=== PATIENT | female | born 1990 | race Caucasian/White ===

== ENCOUNTER 2024-01-12 22:53 | Inpatient (IN) | payer OTHER ==
[2024-01-12] MEDS: ELECTROLYTE-148 SOLN 1,000 ML IV SCH (23:30)
[2024-01-13 00:07] LABS: BASO % 0.2 % (0-2.0); EOS % 0.3 % (0-4.5); HEMOGLOBIN 12.8 GM/dL (10.7-15.3); LYMPH % 19.7 % (8-40); MCH 30.2 pg (25.7-33.7); MCHC 34.6 g/dl (32.0-36.0); MEAN CELL VOLUME 87.2 fl (80-96); MONO % 6.5 % (3.8-10.2); NEUT % 73.3 % (42.8-82.8); PLATELET COUNT 118 10^3/uL (134-434); RBC 4.24 M/mm3 (3.60-5.2); RDW 13.9 % (11.6-15.6)
[2024-01-13 00:15] LABS: INR 0.85 (0.83-1.09); PROTHROMBIN TIME (PATIENT) 9.7 SEC (9.7-13.0)
[2024-01-13 00:18] LABS: ACTIVATED PTT 26.2 SECONDS (25.2-36.5)
[2024-01-13] MEDS ORDERED: FENTANYL/BUPIVACAINE/NS/PF - PCEA - 50 ML DISP.SYRIN EP ONE (00:21)
[2024-01-13 00:30] LABS: CALCIUM 8.8 mg/dL (8.5-10.1); POTASSIUM 4.1 mmol/L (3.5-5.1)
[2024-01-13 00:31] LABS: BLOOD UREA NITROGEN 8.8 mg/dL (7-18)
[2024-01-13 00:34] LABS: CREATININE 0.7 mg/dL (0.55-1.3)
[2024-01-13] MEDS: FENTANYL/BUPIVACAINE/NS/PF - PCEA - 50 ML DISP.SYRIN EP SCH (00:40)
[2024-01-13] MEDS ORDERED: OXYTOCIN 20 UNITS in 0.9% NS 20 UNIT/1,000 ML INFUS.BAG IV ONE (01:10)
[2024-01-13 01:28] LABS: HIV INTERPRETATION NEGATIVE (NEGATIVE)
[2024-01-13 01:29] VITALS: BMI 32.9
[2024-01-13] MEDS ORDERED: NALOXONE HCL 0.4 MG/ML VIAL IVPUSH PRN (01:39)
[2024-01-13] MEDS ORDERED: OXYTOCIN 30 UNITS in 0.9% NS 30 UNIT/500 ML INFUS.BAG IVPB ONE (02:58)
[2024-01-13] MEDS: OXYTOCIN 30 UNITS in 0.9% NS 30 UNIT/500 ML INFUS.BAG IVPB SCH (03:00)
[2024-01-13] MEDS: OXYTOCIN 20 UNITS in 0.9% NS 20 UNIT/1,000 ML INFUS.BAG IV SCH (03:50)
[2024-01-13] MEDS ORDERED: ELECTROLYTE-148 SOLN 1,000 ML IV SCH (04:00)
[2024-01-13] MEDS ORDERED: METHYLERGONOVINE MALEATE 0.2 MG/1 ML AMP IM PRN (04:08)
[2024-01-13] MEDS ORDERED: oxyCODONE HCL 5 MG TABLET PO PRN (04:08)
[2024-01-13] MEDS ORDERED: BENZOCAINE 28 GM HEMORRHOIDAL OINTMENT TP PRN (04:08)
[2024-01-13] MEDS ORDERED: WITCH HAZEL 50% (TUCKS) 40 PAD/JAR PAD TP PRN (04:08)
[2024-01-13] MEDS ORDERED: BISACODYL 10 MG SUPP.RECT RC PRN (04:08)
[2024-01-13] MEDS ORDERED: BENZOCAINE 20% 57 GM BOTTLE TP PRN (04:08)
[2024-01-13] MEDS ORDERED: ACETAMINOPHEN 325 MG TABLET (FP) PO PRN (04:08)
[2024-01-13] MEDS: IBUPROFEN 600 MG TABLET (FP) PO PRN (09:56)
[2024-01-13] MEDS: FERROUS SO4 325 MG TABLET (FP) PO SCH (09:56)
[2024-01-13] MEDS: PRENATAL VITAMINS W/ FOLIC ACID TABLET (FP) PO SCH (09:56)
[2024-01-13 18:09] VITALS: RESP 18
[2024-01-14 10:09] LABS: BASO % 0.3 % (0-2.0); EOS % 0.3 % (0-4.5); HEMATOCRIT 31.2 % (32.4-45.2); HEMOGLOBIN 10.7 GM/dL (10.7-15.3); LYMPH % 18.1 % (8-40); MCH 30.4 pg (25.7-33.7); MCHC 34.2 g/dl (32.0-36.0); MEAN PLT VOLUME 9.8 fl (7.5-11.1); MONO % 6.9 % (3.8-10.2); NEUT % 74.4 % (42.8-82.8); PLATELET COUNT 105 10^3/uL (134-434); RBC 3.51 M/mm3 (3.60-5.2); RDW 14.2 % (11.6-15.6); WHITE BLOOD COUNT 12.5 K/mm3 (4.0-10.0)
[2024-01-14] MEDS ORDERED: SENNOSIDES/DOCUSATE COMBO (SENNA PLUS) TABLET (UD) PO PRN (22:00)
[2024-01-15 10:23] VITALS: BP 127/75; PULSE 73; TEMP 98
== END 2024-01-15 13:05 | disposition home or self-care (01) | DRG 807 ==
LOC: JLDR 22:53 → J3W 01-13 06:14
PROVIDERS: ADMIT Obstetrics & Gynecology; ATTEND Obstetrics & Gynecology
PROC: 10E0XZZ Delivery of Products of Conception, External Approach (ICD-10-PCS; principal; 2024-01-13)
PROC: 0HQ9XZZ Repair Perineum Skin, External Approach (ICD-10-PCS; 2024-01-13)
DX: O70.0 First degree perineal laceration during delivery (principal); Z37.0 Single live birth; Z3A.40 40 weeks gestation of pregnancy
CPT/HCPCS: 36415; 59409; 80048; 85025; 85610; 85730; 86780; 86803; 86850; 86900; 86901; 87389